=== PATIENT | male | born 1990 | race Caucasian/White ===

== ENCOUNTER 2019-07-06 14:37 | Emergency (ER) | payer OTHER ==
[2019-07-06] MEDS ORDERED: NS 1,000 ML IV ONE (15:00)
[2019-07-06] MEDS ORDERED: LIDOCAINE 2% 5ML JELLY UROJET TOP ONE (15:00)
[2019-07-06 15:21] LABS: BASO % 0.7 % (0.0-1.0); EOS # 0.2 10^3/uL (0.0-0.50); EOS % 3.6 % (0.0-3.0); HEMATOCRIT 40.2 % (42.0-52.0); HEMOGLOBIN 14.1 g/dl (13.5-17.5); LYMPH # 2.4 10^3/uL (1.5-6.5); LYMPH % 39.9 % (24.0-44.0); MEAN CORPUSCULAR HEMOGLOBIN 31.8 pg (27.0-33.0); MEAN CORPUSCULAR HGB CONC 35.1 g/dl (32.0-36.5); MEAN CORPUSCULAR VOLUME 90.7 fl (80.0-96.0); MONO # 0.4 10^3/uL (0.0-0.8); NEUTROPHILS # 3.1 10^3/uL (1.8-7.7); NEUTROPHILS % 49.8 % (36.0-66.0); PLATELET COUNT, AUTOMATED 227 10^3/uL (150-450); RED BLOOD COUNT 4.43 10^6/uL (4.30-6.10); WHITE BLOOD COUNT 6.1 10^3/uL (4.0-10.0)
--- NOTE | 2019-07-06 15:32 | REP ---
CT of the head without contrast Indication: Altered mental status. Comparison: None Technique: Axial CT of the head was performed without contrast. Findings: There is no visible soft tissue swelling or calvarial fracture. There is no evidence of acute intracranial hemorrhage or extra-axial fluid collection. Baker-white matter differentiation is maintained. There is no mass effect or midline shift. The basal cisterns are patent. There is no hydrocephalus. The visualized paranasal sinuses and mastoid air cells are clear. Impression: No acute intracranial abnormality. Electronically Signed by Kvng Hurst MD 07/06/2019 03:23 P
[2019-07-06 15:53] LABS: ALBUMIN 4.2 GM/DL (3.2-5.2); ALT/SGPT 19 U/L (12-78); BILIRUBIN,DIRECT 0.1 MG/DL (0.0-0.2); BILIRUBIN,TOTAL 0.3 MG/DL (0.2-1.0); BLOOD UREA NITROGEN 17 MG/DL (7-18); CALCIUM LEVEL 8.4 MG/DL (8.5-10.1); CARBON DIOXIDE LEVEL 27 MEQ/L (21-32); CHLORIDE LEVEL 108 MEQ/L (98-107); CK-MB VALUE MASS 1.9 NG/ML (<3.6); CPK CREATINE PHOSPHOKINASE 128 U/L (39-308); CREATININE FOR GFR 1.03 MG/DL (0.70-1.30); GLOMERULAR FILTRATION RATE > 60.0 (>60); GLUCOSE, FASTING 103 MG/DL (70-100); MB/CK RELATIVE INDEX 1.48 (< OR =4); POTASSIUM SERUM 3.1 MEQ/L (3.5-5.1); SALICYLATE LEVEL < 1.7 MG/DL (5.0-30.0); SODIUM LEVEL 142 MEQ/L (136-145); TOTAL PROTEIN 6.9 GM/DL (6.4-8.2); TROPONIN I < 0.02 NG/ML (< 0.10)
[2019-07-06 15:54] LABS: ACETAMINOPHEN LEVEL < 2.0 UG/ML (10.0-30.0); ETHYL ALCOHOL (ETHANOL) < 0.003 % (0.000-0.010)
[2019-07-06 16:20] LABS: AMPHETAMINES LEVEL URINE NEGATIVE (NEGATIVE); BARBITURATES URINE NEGATIVE (NEGATIVE); BENZODIAZEPINES URINE NEGATIVE (NEGATIVE); CANNABINOIDS URINE NEGATIVE (NEGATIVE); COCAINE METABOLITE URINE NEGATIVE (NEGATIVE); METHADONE URINE NEGATIVE (NEGATIVE); OPIATES URINE NEGATIVE (NEGATIVE); PHENCYCLIDINE URINE NEGATIVE (NEGATIVE)
[2019-07-06 16:45] VITALS: BP 125/69
[2019-07-06] MEDS ORDERED: POTASSIUM CHLORIDE 10 MEQ SR TABLET PO ONE (16:45)
--- NOTE | 2019-07-06 19:32 | ECGEPIP ---
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
== END 2019-07-06 17:00 | disposition home or self-care (01) ==
LOC: M ED 14:37 → EDBD 14:37 → M ED 17:00
DX: R55 Syncope and collapse (principal); I45.19 Other right bundle-branch block
CPT/HCPCS: 36415; 70450; 80048; 80076; 80307; 81001; 82140; 82550; 82553; 83605; 84443; 84484; 85025; 93005; 93041; 94760; 96360; 96361; 99285; G0480

== ENCOUNTER 2019-08-22 13:25 | Emergency (ER) | payer OTHER ==
[~2019-08-22] VITALS: Ht 172.7 cm; Wt 74.5 kg
[2019-08-22 13:25] VITALS: BP 135/85
[2019-08-22] MEDS ORDERED: IBUPROFEN 600 MG TAB PO ONE (14:15)
--- NOTE | 2019-08-22 14:45 | REP ---
Right wrist series: Four views. History: Injury punching a wall. Findings: Four views right wrist demonstrate overall normal mineralization. There is no evidence of acute fracture. There is some dorsal carpal soft tissue swelling. There is an accessory ossicle at the naviculo-multangular articulation which is well corticated. This does not appear acute. Impression: No acute fracture. There is dorsal soft tissue swelling. A well corticated accessory ossicle is seen at the naviculo-multangular articulation. Electronically Signed by Best Kim MD 08/22/2019 05:45 P
== END 2019-08-22 15:12 | disposition home or self-care (01) ==
LOC: M ED 13:25
DX: S62.001A Unspecified fracture of navicular [scaphoid] bone of right wrist, initial encounter for closed fracture (principal); W22.09XA Striking against other stationary object, initial encounter; Y92.9 Unspecified place or not applicable; F17.210 Nicotine dependence, cigarettes, uncomplicated